=== PATIENT | female | born 1980 | race American Indian/Alaskan Native ===

== ENCOUNTER 2018-05-27 04:22 | Emergency (ER) | payer SELFPAY ==
[2018-05-27] MEDS ORDERED: ASPIRIN PO ONE (04:37)
[2018-05-27 05:04] LABS: Basophils % (Auto) 0.6 % (0.0-1.8); Eosinophils # (Auto) 0.3 K/mm3 (0.0-0.4); Eosinophils % (Auto) 4.3 % (0.0-4.3); Hematocrit 35.7 % (30.3-42.9); Hemoglobin 11.7 gm/dl (10.1-14.3); Lymphocytes # (Auto) 1.3 K/mm3 (1.2-5.4); Lymphocytes % (Auto) 19.6 % (13.4-35.0); Mean Corpuscular HGB Conc 33 % (30-34); Mean Corpuscular Hemoglobin 28 pg (28-32); Mean Corpuscular Volume 85 fl (79-97); Monocytes # (Auto) 0.4 K/mm3 (0.0-0.8); Monocytes % (Auto) 6.7 % (0.0-7.3); Platelet Count 290 K/mm3 (140-440); Red Cell Distribution Width 14.8 % (13.2-15.2)
[2018-05-27] MEDS ORDERED: LIDOCAINE VISCOUS 2% PO ONE (05:07)
[2018-05-27] MEDS ORDERED: ALUM-MAG HYDROX-SIMETH 200-200-20MG/5ML PO ONE (05:07)
[2018-05-27 05:17] LABS: BUN/Creatinine Ratio 13; Blood Urea Nitrogen 10 mg/dL (7-17); Calcium 8.8 mg/dL (8.4-10.2); Hemolysis Index 0
[2018-05-27] MEDS ORDERED: TYLENOL PO ONE (05:42)
[2018-05-27] MEDS ORDERED: ZESTRIL PO ONE (05:42)
[2018-05-27] MEDS ORDERED: MOTRIN PO ONE (05:42)
--- NOTE | 2018-05-27 05:48 | Emergency Department Report ---
ED Chest Pain HPI - General Chief Complaint: Chest Pain Stated Complaint: CHEST PAIN Time Seen by Provider: 05/27/18 05:06 Source: patient Mode of arrival: Ambulatory Limitations: No Limitations - History of Present Illness Initial Comments: 24 hours of substernal CP that is constant, nonexertional, pleuritic, not affected by food, nonradiating. Had a similar pain 3 months ago which resolved w /o intervention. Smokes THC. Drinks Etoh. No other drug use. Mom had a mi at 45. No OCPs or h/o DVT/PE. Has intermittently taken her lisinopril. Her mom thinks that the patient might have passed out for a couple of seconds while they were in the care today. - Related Data Home Medications Medication Instructions Recorded Confirmed Last Taken Lisinopril [Zestril] 20 mg PO QDAY 05/27/18 05/27/18 Unknown Allergies Allergy/AdvReac Type Severity Reaction Status Date / Time No Known Allergies Allergy Unverified 05/27/18 04:24 Heart Score - HEART Score History: Slightly suspicious EKG: Normal Age: < 45 Risk factors: 1-2 risk factors Troponin: < normal limit HEART Score: 1 ED Review of Systems ROS: Stated complaint: CHEST PAIN Other details as noted in HPI Comment: All other systems reviewed and negative Respiratory: SOB at rest Cardiovascular: chest pain ED Past Medical Hx - Past Medical History Previous Medical History?: Yes Hx Hypertension: Yes - Surgical History Past Surgical History?: Yes Additional Surgical History: c [id number] - Social History Smoking Status: Former Smoker Substance Use Type: Alcohol - Medications Home Medications: Home Medications Medication Instructions Recorded Confirmed Last Taken Type Lisinopril [Zestril] 20 mg PO QDAY 05/27/18 05/27/18 Unknown History ED Physical Exam - General Limitations: No Limitations General appearance: alert, in no apparent distress - Head Head exam: Present: atraumatic, normocephalic - Eye Eye exam: Present: normal appearance - ENT ENT exam: Present: mucous membranes moist - Neck Neck exam: Present: normal inspection - Respiratory Respiratory exam: Present: normal lung sounds bilaterally, chest wall tenderness. Absent: respiratory distress - Cardiovascular Cardiovascular Exam: Present: regular rate, normal rhythm. Absent: systolic murmur, diastolic murmur, rubs, gallop - GI/Abdominal GI/Abdominal exam: Present: soft, normal bowel sounds. Absent: distended, tenderness, guarding, rebound - Extremities Exam Extremities exam: Present: normal inspection - Back Exam Back exam: Present: normal inspection - Neurological Exam Neurological exam: Present: alert, oriented X3 - Psychiatric Psychiatric exam: Present: normal affect, normal mood - Skin Skin exam: Present: warm, dry, intact, normal color. Absent: rash ED Course Vital Signs 05/27/18 05/27/18 05/27/18 04:29 04:53 05:00 Temperature 99.6 F 98 F Pulse Rate 91 H 81 79 Respiratory 20 15 35 H Rate Blood Pressure 196/123 148/91 Blood Pressure 168/94 [Left] O2 Sat by Pulse 100 99 98 Oximetry 05/27/18 05:44 Temperature Pulse Rate Respiratory 22 Rate Blood Pressure Blood Pressure [Left] O2 Sat by Pulse Oximetry ED Medical Decision Making - Lab Data Result diagrams: 05/27/18 04:50 05/27/18 04:50 - EKG Data -: EKG Interpreted by De EKG shows normal: sinus rhythm, axis, intervals, QRS complexes, ST-T waves Rate: normal - EKG Data Interpretation: no acute changes - Radiology Data Radiology results: report reviewed - Medical Decision Making 38 yo female with pmhx of HTN on lisinopril that p/w CP. VS significant for HTN. Pt has been noncompliant with her home lisinopril. EKG is nonischemic. Trop neg x 1. Low risk heart score. Reproducible CP. PERC neg. CXR unremarkable. Pt was given her home lisinopril and tylenol/motrin for likely costochondritis. I am unsure what to make of this transient ?syncopal episode. Low suspicion for emergent pathology. No evidence of arrhythmias while in the ER. I will have the patient follow up with her PCP for further evaluation. - Differential Diagnosis PE, ACS, PNA, PTX, costochondritis, esophageal rupture, HTN emergency Critical care attestation.: If time is entered above; I have spent that time in minutes in the direct care of this critically ill patient, excluding procedure time. ED Disposition Clinical Impression: Chest pain Disposition: DC-01 TO HOME OR SELFCARE Is pt being admited?: No Does the pt Need Aspirin: No Condition: Stable Instructions: Chest Pain (ED), Costochondritis (ED) Additional Instructions: Please take your lisinopril as prescribed. Take 800 mg motrin every 6 hours with food for the next week. Follow up with your family physcian in 3-5 days for re-check of your blood pressure and chest pain. Referrals: PRIMARY CARE, [Primary Care Provider] - 3-5 Days
--- NOTE | 2018-05-27 06:08 | XRay Report ---
FINAL REPORT EXAM: XR CHEST ROUTINE 2V HISTORY: chest pain TECHNIQUE: PA and lateral views of the chest were submitted. FINDINGS: The heart size and mediastinum appear normal. The lungs are not congested. There are no localized infiltrates or effusions. The skeletal structures are well-maintained. IMPRESSION: No acute cardiopulmonary process.
[2018-05-27 07:19] VITALS: BP 129/80
== END 2018-05-27 06:45 | disposition home or self-care (01) ==
LOC: ED 04:22
DX: R07.89 Other chest pain (principal); I10 Essential (primary) hypertension; Z87.891 Personal history of nicotine dependence
CPT/HCPCS: 36415; 71046; 80048; 84484; 84703; 85025; 93005; 93010